=== PATIENT | male | born 1970 ===

== ENCOUNTER 2018-01-13 14:05 | Observation (INO) ==
[2018-01-13 14:46] LABS: Basophils % 0.2 % (0.0-0.8); Eosinophils # 0.1 10*3/uL (0.0-0.87); Eosinophils % 0.3 % (0.00-10.9); Hematocrit 42.3 VOL% (42.0-52.0); Hemoglobin 14.7 GM/DL (14.0-18.0); Immature Granulocytes % 0.3 %; Immature Granulocytes Absolute 0.05 #; Lymphocytes # 1.4 10*3/uL (1.4-4.0); Lymphocytes % 9.1 % (21.2-54.2); Mean Corpuscular HGB Conc 34.8 GM/DL (32-36); Mean Corpuscular Hemoglobin 32 PG (27-34); Mean Corpuscular Volume 90.6 FL (87-102); Mean Platelet Volume 10.3 FL (9.6-12.0); Monocytes # 0.6 10*3/uL (0.11-0.8); Monocytes % 3.6 % (1.7-12.7); Neutrophils # 13.4 10*3/uL (1.4-7.4); Neutrophils % 86.5 % (38.7-73.9); Platelet Count 233 T/CUMM (130-400); Red Blood Count 4.67 MC/CUMM (3.8-5.5); Red Cell Distribution Width 12.5 % (9.3-17.3); White Blood Count 15.5 T/CUMM (4-12)
[2018-01-13 15:04] LABS: Albumin 3.6 G/DL (3.4-5.0); Bilirubin,Total 1.1 MG/DL (0.2-1.0); Osmolality,Calculated 275.8 MOS/KG (273-304); Potassium 4.5 MMOL/L (3.5-5.1); Total Protein 6.9 G/DL (6.4-8.3)
[2018-01-13] MEDS ORDERED: ALBUTEROL 2.5 MG/3 ML NEB RESP TX STA (15:35)
[2018-01-13] MEDS ORDERED: PROMETHAZINE 25 MG/1 ML VIAL IM PRN (16:22)
[2018-01-13] MEDS ORDERED: ONDANSETRON 4 MG/2 ML VIAL IV PRN (16:22)
[2018-01-13] MEDS ORDERED: ACETAMINOPHEN 325 MG TABLET PO PRN (16:22)
[2018-01-13] MEDS ORDERED: ALBUTEROL 2.5 MG/3 ML NEB RESP TX PRN (16:31)
[2018-01-13] MEDS ORDERED: SODIUM CHLORIDE 0.9% 2,700 ML IV ONE (16:32)
[2018-01-13] MEDS ORDERED: cefTRIAXone 1,000 MG in SYRINGE 1 EACH IV STA (16:34)
[2018-01-13] MEDS ORDERED: AZITHROMYCIN INJ 500 MG in SODIUM CHLORIDE 0.9% 250 ML IV STA (16:34)
[2018-01-13 16:53] LABS: Thyroid Stimulating Hormone 1.84 uIU/ml (0.358-3.74)
[2018-01-13] MEDS ORDERED: cefTRIAXone 1,000 MG in SYRINGE 1 EACH IV SCH (17:00)
[2018-01-13] MEDS: methylPREDNISolone SOD SUC 125 MG/2 ML VIAL IV SCH ×2 (17:27→22:51)
[2018-01-13] MEDS ORDERED: MAGNESIUM SULF RIDER 2 GM in PREMIX 1 EACH IV ONE (17:28)
[2018-01-13 18:34] LABS: ABG Base Excess -6.1 MMOL/L (-2.5-2.5); ABG HCO3 19.5 MMOL/L (20-26); ABG PH 7.495 (7.35-7.45); ABG TCO2 13.4 MMOL/L (23-27); Allen Test Positive; Pt O2 Delivery Device Room Air
[2018-01-13 18:38] LABS: ABG PCO2 19.8 MM HG (35-48)
[2018-01-13] MEDS: ALBUTEROL/IPRATROPIUM 3 ML NEB RESP TX SCH (19:38)
[2018-01-13 19:58] LABS: Troponin I < 0.015 NG/ML (0.00-0.045)
[2018-01-13] MEDS: SODIUM CHLORIDE 0.9% 1,000 ML IV SCH (20:36)
[2018-01-13] MEDS: ENOXAPARIN 40 MG/0.4 ML SYRINGE SUBCUT SCH (20:46)
[2018-01-13] MEDS: MONTELUKAST 10 MG TABLET PO SCH (20:46)
[2018-01-13] MEDS: FLUTICASONE/SALMETEROL 500-50 DISKUS 14 DOSE INH SCH (20:46)
[2018-01-13] MEDS: clonazePAM 0.5 MG TABLET PO SCH (20:46)
[2018-01-13 21:38] LABS: Apearance,Urine CLEAR (Clear); Bilirubin,Urine Negative (Negative); Blood, Urine Small mg/dL (Negative); Glucose,Urine (UA) Negative (Negative); Ketones,Urine Negative (Negative); Mucus,Urine Occasional /LPF (Occasional); Nitrite,Urine Negative (Negative); Protein,Urine 30 MG/DL; RBC,Urine 9 /HPF (0-4); Urine Color Yellow (Yellow); Urine Specific Gravity 1.048 (1.001-1.035); Urine Urobilinogen < 2.0 EU/DL (0.2-1.0); WBC,Urine 2 /HPF (0-6)
[2018-01-13 21:48] LABS: Lactic Acid 3.8 MMOL/L (0.4-2.0)
[2018-01-14] MEDS: ALBUTEROL/IPRATROPIUM 3 ML NEB RESP TX SCH ×3 (00:21→12:54)
[2018-01-14 04:14] LABS: ABG Base Excess -6.5 MMOL/L (-2.5-2.5); ABG HCO3 19.1 MMOL/L (20-26); ABG Oxygen Saturation 98.5 % (95-100); ABG PCO2 32.9 MM HG (35-48); ABG PH 7.352 (7.35-7.45); ABG TCO2 16.4 MMOL/L (23-27)
[2018-01-14] MEDS: methylPREDNISolone SOD SUC 125 MG/2 ML VIAL IV SCH ×4 (05:11→23:35)
[2018-01-14 05:19] LABS: Basophils % 0.1 % (0.0-0.8); Hematocrit 32.2 VOL% (42.0-52.0); Hemoglobin 10.9 GM/DL (14.0-18.0); Immature Granulocytes % 0.8 %; Immature Granulocytes Absolute 0.07 #; Lymphocytes # 0.6 10*3/uL (1.4-4.0); Mean Corpuscular HGB Conc 33.9 GM/DL (32-36); Mean Corpuscular Hemoglobin 32 PG (27-34); Mean Corpuscular Volume 93.3 FL (87-102); Mean Platelet Volume 10.6 FL (9.6-12.0); Monocytes % 0.2 % (1.7-12.7); Neutrophils # 8.2 10*3/uL (1.4-7.4); Neutrophils % 91.9 % (38.7-73.9); Platelet Count 179 T/CUMM (130-400); Red Blood Count 3.45 MC/CUMM (3.8-5.5); Red Cell Distribution Width 12.4 % (9.3-17.3); White Blood Count 8.9 T/CUMM (4-12)
[2018-01-14 05:57] LABS: Albumin 2.9 G/DL (3.4-5.0); Bilirubin,Total 0.7 MG/DL (0.2-1.0); Calcium 8.3 MG/DL (8.5-10.1); Osmolality,Calculated 283.4 MOS/KG (273-304); Potassium 4.3 MMOL/L (3.5-5.1); Risk Ratio 2.21; Total Protein 6.2 G/DL (6.4-8.3); VLDL CHOLESTEROL 12.8 MG/DL
[2018-01-14 05:59] LABS: Troponin I < 0.015 NG/ML (0.00-0.045)
[2018-01-14 06:24] LABS: Lymphocytes 9 % (20-55); Platelet Estimate Adequate; Segmented Neutrophils 91 % (50-85); Total Cells Counted 100
[2018-01-14] MEDS: SODIUM CHLORIDE 0.9% 1,000 ML IV SCH ×2 (07:44→14:37)
[2018-01-14 08:00] LABS: Folate 3.7 NG/ML (5.4-24.0)
[2018-01-14 08:01] LABS: % Iron Saturation 12.7 % (18-50)
[2018-01-14] MEDS: FLUTICASONE/SALMETEROL 500-50 DISKUS 14 DOSE INH SCH ×2 (08:52→20:47)
[2018-01-14] MEDS: clonazePAM 0.5 MG TABLET PO SCH ×2 (08:53→20:47)
[2018-01-14] MEDS: PANTOPRAZOLE 40 MG TABLET PO SCH (08:53)
[2018-01-14 11:28] LABS: Troponin I < 0.015 NG/ML (0.00-0.045)
[2018-01-14 12:34] LABS: Lactic Acid 4.9 MMOL/L (0.4-2.0)
[2018-01-14] MEDS ORDERED: ALBUTEROL/IPRATROPIUM 3 ML NEB RESP TX PRN (12:45)
[2018-01-14] MEDS ORDERED: LACTATED RINGERS 1,000 ML IV ONE (13:20)
[2018-01-14] MEDS ORDERED: ERGOCALCIFEROL 50,000 UNIT CAPSULE PO SCH (15:00)
[2018-01-14] MEDS: PIPERACILLIN/TAZOBACTAM 3,375 MG in SODIUM CHLORIDE 0.9% 100 ML IV SCH ×2 (15:21→22:50)
[2018-01-14] MEDS ORDERED: AZITHROMYCIN INJ 250 MG in SODIUM CHLORIDE 0.9% 250 ML IV SCH (17:00)
[2018-01-14] MEDS: FERROUS SULFATE 325 MG TABLET PO SCH ×2 (18:04→20:47)
[2018-01-14] MEDS: VANCOMYCIN INJ 1,250 MG in SODIUM CHLORIDE 0.9% 250 ML IV SCH (20:11)
[2018-01-14] MEDS: MONTELUKAST 10 MG TABLET PO SCH (20:47)
[2018-01-14] MEDS: ENOXAPARIN 40 MG/0.4 ML SYRINGE SUBCUT SCH (20:48)
[2018-01-14] MEDS ORDERED: FOLIC ACID 1 MG TABLET PO SCH (21:00)
[2018-01-15] MEDS: methylPREDNISolone SOD SUC 125 MG/2 ML VIAL IV SCH (05:01)
[2018-01-15] MEDS: PIPERACILLIN/TAZOBACTAM 3,375 MG in SODIUM CHLORIDE 0.9% 100 ML IV SCH (05:26)
[2018-01-15 06:07] LABS: Basophils % 0.1 % (0.0-0.8); Hematocrit 31.3 VOL% (42.0-52.0); Hemoglobin 10.8 GM/DL (14.0-18.0); Immature Granulocytes % 0.8 %; Lymphocytes # 0.6 10*3/uL (1.4-4.0); Lymphocytes % 5.1 % (21.2-54.2); Mean Corpuscular HGB Conc 34.5 GM/DL (32-36); Mean Corpuscular Hemoglobin 31 PG (27-34); Mean Corpuscular Volume 90.5 FL (87-102); Mean Platelet Volume 10.4 FL (9.6-12.0); Monocytes # 0.3 10*3/uL (0.11-0.8); Neutrophils # 11.4 10*3/uL (1.4-7.4); Platelet Count 191 T/CUMM (130-400); Red Blood Count 3.46 MC/CUMM (3.8-5.5); Red Cell Distribution Width 12.7 % (9.3-17.3); White Blood Count 12.4 T/CUMM (4-12)
[2018-01-15 06:36] LABS: Lymphocytes 4 % (20-55); Platelet Estimate Adequate; Polychromasia Few; Segmented Neutrophils 94 % (50-85); Total Cells Counted 100
[2018-01-15] MEDS: VANCOMYCIN INJ 1,250 MG in SODIUM CHLORIDE 0.9% 250 ML IV SCH (06:51)
[2018-01-15] MEDS: clonazePAM 0.5 MG TABLET PO SCH (08:27)
[2018-01-15] MEDS: PANTOPRAZOLE 40 MG TABLET PO SCH (08:27)
[2018-01-15] MEDS: FERROUS SULFATE 325 MG TABLET PO SCH (08:27)
[2018-01-15] MEDS: FLUTICASONE/SALMETEROL 500-50 DISKUS 14 DOSE INH SCH (08:28)
[2018-01-15 09:16] LABS: Alanine Aminotransferase 18 U/L (16-61); Alkaline Phosphatase 61 U/L (45-117); Aspartate Amino Transferase 6 U/L (0-37); Bilirubin,Total < 0.39 MG/DL (0.2-1.0); Blood Urea Nitrogen 10 MG/DL (7-18); Calcium 8.6 MG/DL (8.5-10.1); Glucose 194 MG/DL (74-106); Osmolality,Calculated 280.5 MOS/KG (273-304); Potassium 3.9 MMOL/L (3.5-5.1); Sodium 139 MMOL/L (136-145); Total Protein 6.4 G/DL (6.4-8.3)
[2018-01-15 09:21] LABS: Lactic Acid 2.3 MMOL/L (0.4-2.0)
[2018-01-15 10:34] LABS: HIV Antigen/Antibody Result Nonreactive (Nonreactive)
[2018-01-15 12:21] VITALS: BP 141/79
[2018-01-15] MEDS ORDERED: methylPREDNISolone SOD SUC 40 MG/1 ML VIAL IV SCH (18:00)
== END 2018-01-15 13:50 | disposition home or self-care (01) ==
LOC: N.ED 14:05 → N.EDINP 14:05 → N.5E 17:12
PROVIDERS: ADMIT Internal Medicine; ATTEND Internal Medicine